=== PATIENT | female | born 1985 | race Hispanic/Latino ===

== ENCOUNTER → 2023-11-11 10:10 | Outpatient (CLI) | payer OTHER, SELFPAY ==
--- NOTE | 2023-11-11 10:16 | DI.RAD.S_ITS ---
PROCEDURE: XR ABDOMEN MIN 2V INDICATIONS: Constipation, unspecified TECHNIQUE: 2 views of the abdomen were acquired. COMPARISON: None. FINDINGS: Surgical changes and devices: None. Bowel: No pneumoperitoneum. The bowel gas pattern is normal. Moderate amount of stool throughout the colon. Soft tissues: No masses; visualized solid organ contours appear normal in size. No suspicious abdominal calcifications. Bones: No suspicious bony abnormalities. IMPRESSION: Non-obstructive bowel gas pattern. Moderate colonic fecal loading. Dictated by: Mee Rowell MD, PhD on 11/11/2023 at 10:44 Approved by: Mee Rowell MD, PhD on 11/11/2023 at 10:44
== END ==
LOC: RAD 10:15
PROVIDERS: PCP Registered Nurse; Referring Provider Registered Nurse; Visit Provider Registered Nurse
DX: K59.00 Constipation, unspecified (principal); K62.5 Hemorrhage of anus and rectum
CPT/HCPCS: 74019

== ENCOUNTER 2024-01-24 12:05 | Day surgery (SDC) | payer OTHER, SELFPAY ==
[2024-01-24 12:29] VITALS: BP 126/76; PULSE 92; RESP 16; TEMP 36.7; O2SAT 99
--- NOTE | 2024-01-24 12:38 | P.HP_ITS ---
History of Present Illness History of Present Illness Date Patient Seen: 01/24/24 Time Patient Seen: 12:39 Chief complaint: Dx Colonoscopy w/poss bx Narrative: Pamella is a 38 year old woman who presents for a colonoscopy for rectal bleeding. See prior office note for details. [facility] Medical History (Updated 12/08/23 @ 11:16 by Enoch Gonzalez MD) OCD (obsessive compulsive disorder) ADHD Depression Anxiety Meds Home Medications and Allergies Home Medications Medication Instructions Recorded Confirmed Type albuterol sulfate 90 mcg/actuation 2 puff inhalation Q6H PRN 12/08/23 01/24/24 History aerosol inhaler Shortness Of Breath Or Wheezing etonogestrel 68 mg subdermal subdermal 12/08/23 12/08/23 History implant hydroxyzine HCl 25 mg tablet 25 mg PO Q8H PRN control 12/08/23 01/24/24 History lisdexamfetamine 20 mg capsule 30 mg PO DAILY 12/08/23 01/24/24 History (Vyvanse) venlafaxine 150 mg 150 mg PO DAILY 12/08/23 01/24/24 History capsule,extended release 24 hr sodium,potassium,mag sulfates 17.5 See Rx Instructions PO .COMPLEX 12/10/23 01/24/24 Rx gram-3.13 gram-1.6 gram oral soln #354 mL (Suprep Bowel Prep Kit) Allergies Allergy/AdvReac Type Severity Reaction Status Date / Time No Known Drug Allergies Allergy Verified 01/24/24 12:22 Exam Const General: healthy appearing Resp Effort & Inspection: normal respiratory effort Assessment & Plan Assessment and plan (1) Rectal bleeding: Status: Acute Plan We discussed the risks and benefits of colonoscopy for rectal bleeding and she would like to proceed. Time-Based Coding :: [TOTAL MINUTES] spent with patient and on the chart (including review of chart, obtaining history, exam, reviewing outside data, placing orders, documenting exam and treatment plan, and counseling patient) on [DATE].
[2024-01-24] MEDS: LACTATED RINGERS 1,000 ML 42 ML IV (12:43)
[2024-01-24 13:44] VITALS: BP 104/61; PULSE 69; RESP 11; TEMP 36.1; O2SAT 99
--- NOTE | 2024-01-24 13:46 | PM.OP.COLON ---
Operative Date/Time/Diagnoses Date of procedure: 01/24/24 Time of procedure: 13:46 Pre-op diagnosis: Rectal bleeding Post-op diagnosis: same Procedure & Clinicians Study performed: Colonoscopy Same procedure as scheduled: Yes Surgeon: Enoch Gonzalez Procedure Notes Procedure in detail: Surgeon: Enoch Gonzalez MD Anesthesia: Angelica Luevano CRNA Procedure: The patient was brought to the endoscopy suite, placed in left lateral decubitus position. The patient was connected to monitoring devices. A time-out was performed. Sedation was administered. Once the patient was adequately sedated, a digital rectal exam was performed and was normal. The scope was then inserted and advanced to the cecum where the appendiceal orifice was identified and photographed. The scope was then slowly withdrawn over greater than 6 minutes. The mucosa was thoroughly inspected. No abnormalities were noted. The scope was retroflexed in the rectum. No gross abnormalities were seen. The scope was straightened and removed. The patient was awakened and brought to recovery. Scope withdrawal time: 11 minutes Sedation time: 15 minutes EBL: 0 Findings: Normal colon Post-procedure Recommendations: Colonoscopy in 10 years Disposition: PACU
[2024-01-24 13:50] VITALS: BP 113/83; PULSE 71; RESP 20; O2SAT 100
[2024-01-24 13:54] VITALS: BP 115/52; PULSE 87; RESP 12; TEMP 36.4; O2SAT 99
== END 2024-01-24 14:15 | disposition home or self-care (01) ==
PROVIDERS: PCP Registered Nurse; Referring Provider Surgery; Visit Provider Surgery
PROC: 0DJD8ZZ Inspection of Lower Intestinal Tract, Via Natural or Artificial Opening Endoscopic (ICD-10-PCS; CPT 45378; principal; 2024-01-24 13:00)
DX: K62.5 Hemorrhage of anus and rectum (principal)
CPT/HCPCS: 45378; 81025; J2704